=== PATIENT | male | born 1960 | race Caucasian/White ===

== ENCOUNTER 2022-10-31 17:11 | Emergency (ER) | payer OTHER, SELFPAY ==
--- NOTE | ~2022-10-31 | XR_ITS ---
XR foot LT min 3V DATE: 10/31/2022 19:27 INDICATION: Injury, pain TECHNIQUE: 4 views COMPARISON: None FINDINGS: Patchy sclerotic densities in the distal tibial diametaphysis which may be due to bone infa rct or benign cartilaginous lesion. Prominent plantar calcaneal enthesopathy. No fracture, dislocation, periosteal reaction or bone destruction. IMPRESSION: No fracture or dislocation Reviewed, dictated and finalized at location A. IMPRESSION: No fracture or dislocation
[2022-10-31 17:45] VITALS: BP 138/77; PULSE 73; RESP 17; TEMP 36.6; O2SAT 98
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
[2022-10-31] MEDS: KETOROLAC 30 MG/ML VIAL (*BKC) IM (21:05)
[2022-10-31 21:09] VITALS: BP 155/78; PULSE 73; RESP 20; O2SAT 100
== END 2022-10-31 21:17 | disposition home or self-care (01) ==
PROVIDERS: Emergency Provider Preventive Medicine Aerospace Medicine; PCP Family Medicine
DX: S96.912A Strain of unspecified muscle and tendon at ankle and foot level, left foot, initial encounter (principal); I10 Essential (primary) hypertension; C95.91 Leukemia, unspecified, in remission; X50.9XXA Other and unspecified overexertion or strenuous movements or postures, initial encounter; Y93.01 Activity, walking, marching and hiking
CPT/HCPCS: 73630; 96372; 99283; J1885

== ENCOUNTER 2023-12-21 00:12 | Emergency (ER) | payer OTHER, SELFPAY ==
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
[2023-12-21 00:21] VITALS: PULSE 93; RESP 18; TEMP 36.4; O2SAT 97
[2023-12-21 00:26] VITALS: BP 158/88
[2023-12-21 01:55] VITALS: BP 144/77; PULSE 77; RESP 18; O2SAT 96
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
== END 2023-12-21 06:00 | disposition home or self-care (01) ==
PROVIDERS: Emergency Provider Student in an Organized Health Care Education/Training Program; PCP Family Medicine
DX: S63.502A Unspecified sprain of left wrist, initial encounter (principal); I10 Essential (primary) hypertension; C95.91 Leukemia, unspecified, in remission; V89.2XXA Person injured in unspecified motor-vehicle accident, traffic, initial encounter
CPT/HCPCS: 73110; 99283